=== PATIENT | male | born 1945 ===

== ENCOUNTER → 2016-09-14 | Outpatient (CLI) | payer OTHER ==
[2016-09-14 13:53] LABS: ESTIMATED AVERAGE GLUCOSE 315 mg/dl; HA1C FLAG Normal (Normal)
[2016-09-14 13:55] LABS: ALB/GLOB RATIO 1.1 (0.9-2); ALKALINE PHOSPHATASE 69 U/L (45-117); ALT/SGPT 34 U/L (12-78); AST/SGOT 17 U/L (15-37); BLOOD UREA NITROGEN 16 mg/dl (7-18); BUN/CREATININE RATIO 14.6 (10-20); CARBON DIOXIDE 24 mmol/L (21-32); CHLORIDE 102 mmol/L (98-107); CHOLESTEROL 218 mg/dl (0-200); GLUCOSE 383 mg/dl (70-99); POTASSIUM 4.2 mmol/L (3.5-5.1); SODIUM 136 mmol/L (136-145); TRIGLYCERIDES 188 mg/dl (0-150); VERY LOW DENSITY LIPOPROT CALC 38 mg/dl
[2016-09-14 14:08] LABS: CHOLESTEROL/HDL RATIO 5.1; HDL CHOLESTEROL 43 mg/dl; LDL CHOLESTEROL CALCULATED 137 mg/dl
[2016-09-14 14:29] LABS: BETA-HYDROXYBUTYRATE 4.14 mg/dL (0.2-2.81)
[2016-09-14 15:21] LABS: RATIO 22.1 mcg/mg (0-30.0)
[2016-09-14 18:39] LABS: CALCIUM 9.6 mg/dl (8.5-10.1)
== END | disposition home or self-care (01) ==
LOC: C.LABMFLN 09:22
PROVIDERS: ATTEND Family Medicine
DX: Z11.59 Encounter for screening for other viral diseases (principal); E11.9 Type 2 diabetes mellitus without complications